=== PATIENT | female | born 1995 | race Caucasian/White ===

== ENCOUNTER 2019-12-13 12:23 | Emergency (ER) | payer BC, SELFPAY ==
[2019-12-13] VITALS (7 sets, daily range): BP systolic 122–135; BP diastolic 68–87; PULSE 72–88; RESP 16–22; TEMP 36.7; O2SAT 97–99
--- NOTE | ~2019-12-13 | CT_ITS ---
EXAMINATION: CT brain wo con EXAM DATE: 12/13/2019 13:50 INDICATION: Lower extremity paresthesias. TECHNIQUE: Spiral CT of the head was performed without contrast. Axial, coronal and sagittal images were reviewed. The dose-length product (DLP) for this examination was 605.33 mGy-cm. The exposure w as tailored according to patient size, and iterative reconstruction (ASIR) was used as additional dos e reduction technique. There is no prior study for comparison. FINDINGS: There is no acute intraparenchymal hemorrhage. No evidence of intraparenchymal brain mass lesion. No evidence of acute infarction. There is no mass effect or midline shift. The ventricles are normal in size. There are no extra-axial collections. There are no acute calvarial fractures. T he orbits are unremarkable. Soft tissue is unremarkable. The visualized sinuses and mastoid air theresa ls are well aerated. IMPRESSION: 1. Normal head CT examination. Reviewed, dictated and finalized at location A.
--- NOTE | ~2019-12-13 | XR_ITS ---
EXAMINATION: XR chest 2V EXAM DATE: 12/13/2019 13:57 INDICATION: Leg numbness, tingling. Red line on leg last night. TECHNIQUE: Frontal and lateral projections of the chest obtained and reviewed. There is no prior milagros dy for comparison. FINDINGS: The lungs are clear. There are no pleural effusions. The cardiomediastinal silhouette is within normal limits. There is no pneumothorax suspected. The bones and soft tissues are unremarkab le. IMPRESSION: Unremarkable chest x-ray exam. Reviewed, dictated and finalized at location A.
--- NOTE | 2019-12-13 13:19 | ECG_ITS ---
Measurements Intervals [place] Rate: 74 P: 47 [place]: 154 QRS: 64 QRSD: 90 T: 37 QT: 378 QTc: 421 Interpretive Statements SINUS RHYTHM POSSIBLE LEFT ATRIAL ENLARGEMENT INCOMPLETE RIGHT BUNDLE BRANCH BLOCK BORDERLINE ECG Electronically Signed On 12-13-2019 16:18:08 CDT by Abner Wagner D.O.
--- NOTE | 2019-12-13 13:21 | ED.GENADULT ---
HPI - General Adult General Chief complaint: Unspecified <GILMAR Arguello Last Filed: 12/13/19 16:03> Stated complaint: leg pain/anxiety <GILMAR Arguello Last Filed: 12/13/19 16:03> Time Seen by Provider: 12/13/19 12:56 <GILMAR Arguello Last Filed: 12/13/19 16:03> Source: patient <GILMAR Arguello Last Filed: 12/13/19 16:03> Mode of arrival: wheelchair <GILMAR Arguello Last Filed: 12/13/19 16:03> Limitations: no limitations <GILMAR Arguello Last Filed: 12/13/19 16:03> History of Present Illness HPI narrative: This is a 24-year-old female presents the emergency department for paresthesias this morning. Reports last night she started having left thigh pain. Noted a red streak in her left thigh which is now resolved. Reports this morning she was trying to take her pedal pulses and started to feel numb and tingling everywhere. Reports this is now resolved. Reports it was associated with some shortness of breath and some left-sided chest discomfort. Denies fever, cough, vision changes, vomiting or current numbness or weakness. <GILMAR Arguello Last Filed: 12/13/19 16:03> Related Data Home medications: Home Medications Medication Instructions Recorded Confirmed desogestrel-ethinyl estradiol tablet 12/13/19 [[place]] levothyroxine 12/13/19 verapamil mg PO 12/13/19 <GILMAR Arguello Last Filed: 12/13/19 16:03> Allergies/adverse reactions: Allergies Allergy/AdvReac Type Severity Reaction Status Date / Time amoxicillin Allergy Rash Verified 12/13/19 12:34 <GILMAR Arguello Last Filed: 12/13/19 16:03> Review of Systems Review of Systems: Narrative: CONSTITUTIONAL: Denies fever EYES: Denies visual changes CARDIOVASCULAR: Reports chest pain. Denies palpitations, or edema. RESPIRATORY: Reports dyspnea. Denies cough GASTROINTESTINAL: Denies vomiting SKIN: Reports rash MUSCULOSKELETAL: Reports myalgia. NEUROLOGIC: Reports numbness. Denies headache, or weakness. PSYCHIATRIC: Denies anxiety <Vero Mcarthur PA-C - Last Filed: 12/13/19 16:03> All systems reviewed & are unremarkable except as noted in HPI and below <Vero Mcarthur PA-C - Last Filed: 12/13/19 16:03> PMFSH Past Medical History Medical History: Medical History (Updated 12/13/19 @ 16:03 by Vero Mcarthur PA-C) History of hypothyroidism History of migraine <Vero Mcarthur PA-C - Last Filed: 12/13/19 16:03> Exam Narrative: Exam Narrative: GENERAL: Well-appearing, well-nourished, and in no acute distress. HEAD: Normocephalic, atraumatic. EYES: PERRLA and EOMI. ENT: Nares clear, no rhinorrhea or epistaxis. Mucous membranes moist. Oropharynx without tonsillar hypertrophy exudate or other lesions. Bilateral TMs pearly cho non-bulging NECK: Supple. No adenopathy or masses. CHEST: Clear to auscultation. No respiratory distress. No wheezes rales or rhonchi HEART: Regular rate and rhythm. No murmur heard. Normal peripheral pulses. EXTREMITIES: Normal range of motion. No edema. SKIN: Warm, dry, no rash. NEURO: No focal deficits. Alert and oriented x3. Cranial nerves II through XII grossly intact. Normal [id number] PSYCH: Normal mood and affect <Vero Mcarthur PA-C - Last Filed: 12/13/19 16:03> Course Vital Signs Vital signs: Vital Signs Temperature 98.0 F 12/13/19 12:28 Pulse Rate 75 12/13/19 12:28 Respiratory Rate 20 12/13/19 12:28 Blood Pressure 135/87 12/13/19 12:28 Pulse Oximetry 97 12/13/19 12:28 Temperature 98.0 F 12/13/19 12:28 Pulse Rate 72 12/13/19 16:01 Respiratory Rate 16 12/13/19 16:01 Blood Pressure 126/81 12/13/19 16:01 Pulse Oximetry 97 12/13/19 16:01 <Vero Mcarthur PA-C - Last Filed: 12/13/19 16:03> Vital Signs Temperature 98.0 F 12/13/19 12:28 Pulse Rate 75 12/13/19 12:28 Respiratory Rate 20 12/13/19 12:28 Blood Pre
[2019-12-13 13:42] LABS: Basophils Percent Auto 0.4 % (0.2-1.2); Eosinophils Absolute Auto 0.1 K/mm3 (0-0.3); Eosinophils Percent Auto 0.8 % (0-4.4); Hematocrit 40.4 % (37.0-47.0); Immature Granulocyte Absolute 0.02 K/mm3 (0.00-0.031); Immature Granulocyte Percent A 0.3 % (0-0.5); Lymphocytes Absolute Auto 1.49 K/mm3 (0.9-3.2); Mean Corpuscular HGB Conc 32.2 g/dl (32-36); Mean Corpuscular Hemoglobin 25.9 pg (26-34); Mean Corpuscular Volume 80.6 fl (80-100); Mean Platelet Volume 9.7 fl (7.4-10.4); Monocytes Absolute Auto 0.4 K/mm3 (0.1-0.6); Monocytes Percent Auto 5.5 % (2.6-8.5); Neutrophils Absolute Auto 5.4 K/mm3 (1.3-6.7); Platelet Count Result 275 k/mm3 (150-375); Red Blood Count 5.01 M/mm3 (4.2-5.4); Red Cell Distribution Width 13.9 % (11.5-14.5); White Blood Count 7.4 K/mm3 (4.5-10.0)
[2019-12-13 13:53] LABS: Alanine Aminotransferase 12 U/L (4-35); Albumin Level 4.5 g/dL (3.5-5.1); Alkaline Phosphatase 64 U/L (38-126); Aspartate Amino Transferase 18 U/L (14-36); Bilirubin,Total 0.3 mg/dL (0.2-1.3); Blood Urea Nitrogen 11 mg/dL (7-17); Carbon Dioxide 22 mmol/L (22-30); Chloride 107 mmol/L (98-107); Estimated CRCL calculation 106 ml/min; Estimated Glomerular Filt Rate > 60; Glucose 85 mg/dL (65-105); Potassium 3.8 mmol/L (3.4-5.0); Sodium 139 mmol/L (137-145)
[2019-12-13 14:00] LABS: INR 1.1; Prothrombin Time 14.2 Seconds (11.1-14.7)
[2019-12-13 14:03] LABS: D Dimer 0.27 ug/mL (<0.48)
[2019-12-13 14:04] LABS: Troponin I < 0.012 ng/mL (0.000-0.034)
== END 2019-12-13 16:11 | disposition home or self-care (01) ==
PROVIDERS: Physician Assistant; Emergency Provider General Practice; PCP Pediatrics
DX: R07.9 Chest pain, unspecified (principal); E03.9 Hypothyroidism, unspecified; I45.10 Unspecified right bundle-branch block; R94.31 Abnormal electrocardiogram [ECG] [EKG]
CPT/HCPCS: 36415; 70450; 71046; 80053; 81025; 84443; 84484; 85025; 85380; 85610; 85730; 93005; 99284